=== PATIENT | female | born 1975 | race American Indian/Alaskan Native ===

== ENCOUNTER 2017-03-25 11:04 | Emergency (ER) | payer MEDICAID ==
[2017-03-25 11:27] VITALS: BMI 26.4
[2017-03-25 11:29] VITALS: BP 117/74; PULSE 83; RESP 20; TEMP 98.2
[2017-03-25 11:35] VITALS: O2SAT 98
--- NOTE | 2017-03-25 12:21 | ED PDOC ---
HPI: CCC, URI, Sore Throat Time Seen by Provider: 03/25/17 11:39 Chief Complaint (Nursing): Cough, Cold, Congestion Chief Complaint (Provider): cough History Per: Patient History/Exam Limitations: no limitations Onset/Duration Of Symptoms: Days (3), Gradual Current Symptoms Are (Timing): Still Present Location Of Pain: Throat. denies: Diffuse Myalgias, Headache Sick Contacts (Context): None Severity: Mild Additional Complaint(s): 41yo female hx HIV on HAART states VL neg, presents c/o cough and mild sore throat for last 3 days. Denies significant headache, fatigue or body aches. Taking OTC cough medicines with some relief. Did not get flu shot this year. Past Medical History Reviewed: Historical Data, Nursing Documentation, Vital Signs Vital Signs: Last Vital Signs Temp 98.2 F 03/25/17 11:28 Pulse 83 03/25/17 11:28 Resp 20 03/25/17 11:28 BP 117/74 03/25/17 11:28 Pulse Ox 98 03/25/17 11:32 - Medical History PMH: HIV - Family History Family History: States: Unknown Family Hx - Social History Current smoker - smoking cessation education provided: No - Home Medications Home Medications: Ambulatory Orders Medication Instructions Recorded Albuterol HFA [Ventolin HFA 90 1 - 2 puff IH Q4 PRN #1 inhaler 03/25/17 mcg/actuation (8 g)] Azithromycin [Zithromax] 250 mg PO DAILY #6 tab 03/25/17 Ibuprofen [Motrin Tab] 600 mg PO Q6 PRN #15 tab 03/25/17 - Allergies Allergies/Adverse Reactions: Allergies Allergy/AdvReac Type Severity Reaction Status Date / Time No Known Allergies Allergy Verified 03/25/17 11:32 Review of Systems Constitutional: Positive for: Malaise. Negative for: Fever, Chills Respiratory: Positive for: Cough. Negative for: Shortness of Breath, Hemoptysis , Pleuritic Pain, Sputum, Wheezing Gastrointestinal: Negative for: Nausea, Vomiting, Abdominal Pain Genitourinary Female: Negative for: Dysuria Musculoskeletal: Negative for: Neck Pain, Back Pain, Leg Pain Skin: Negative for: Rash, Lesions, Jaundice Neurological: Negative for: Weakness, Numbness, Headache Psych: Negative for: Anxiety Physical Exam - Reviewed Nursing Documentation Reviewed: Yes Vital Signs Reviewed: Yes - Physical Exam Appears: Positive for: Well, Non-toxic, No Acute Distress Head Exam: Positive for: ATRAUMATIC, NORMAL INSPECTION, NORMOCEPHALIC Skin: Positive for: Normal Color, Warm, DRY Eye Exam: Positive for: EOMI, Normal appearance, PERRL ENT: Positive for: Normal ENT Inspection, Pharyngeal Erythema, Other (neg thrush ). Negative for: Tonsillar Exudate, Tonsillar Swelling Neck: Positive for: Normal, Painless ROM, Supple Cardiovascular/Chest: Positive for: Regular Rate, Rhythm Respiratory: Positive for: Normal Breath Sounds. Negative for: Wheezing, Respiratory Distress Gastrointestinal/Abdominal: Positive for: Bowel Sounds, Soft. Negative for: Tenderness Back: Positive for: Normal Inspection Extremity: Positive for: Normal ROM Neurologic/Psych: Positive for: Alert, Oriented. Negative for: Motor/Sensory Deficits - ECG O2 Sat by Pulse Oximetry: 98 Pulse Ox Interpretation: Normal - Radiology X-Ray: Interpreted by Me X-Ray Interpretation: No Acute Disease Medical Decision Making Medical Decision Making: CXR neg but given hx HIV cover w Azithromycin, followup PMD, supportive care, Rx motrin/ albuterol HFA provided. No signs resp failure, systemic infection or hemodynamic instability to indicate further testing in ED. Disposition - Clinical Impression Clinical Impression: Bronchitis - Disposition Condition: STABLE Additional Instructions: Use medications as directed. Return to ER for any worse or new symptoms, difficulty breathing, fever >104, or any concern. Prescriptions: Albuterol HFA [Ventolin HFA 90 mcg/actuation (8 g)] 1 - 2 puff IH Q4 PRN #1 inhaler PRN Reason: Shortness Of Breath Azithromycin [Zithromax] 250 mg PO DAILY #6 tab Ibuprofen [Motrin Tab] 600 mg PO Q6 PRN #15 tab PRN Reason: Pain, Moderate (4-7) Instructions: Acute Bronchitis (ED) Forms: [employer] (Frisian)
--- NOTE | 2017-03-25 14:40 | RAD ---
HISTORY: cough COMPARISON: No prior. TECHNIQUE: Chest PA and lateral FINDINGS: LUNGS: No active pulmonary disease. PLEURA: No significant pleural effusion identified. No pneumothorax apparent. CARDIOVASCULAR: Normal. OSSEOUS STRUCTURES: No significant abnormalities. VISUALIZED UPPER ABDOMEN: Normal. OTHER FINDINGS: None. IMPRESSION: No acute cardiopulmonary disease appreciated.
== END 2017-03-25 12:25 | disposition home or self-care (01) ==
LOC: H.ER 11:04
DX: J40 Bronchitis, not specified as acute or chronic (principal)

== ENCOUNTER 2017-08-14 15:57 | Emergency (ER) | payer MEDICAID ==
[2017-08-14 15:57] VITALS: BMI 26.4
[2017-08-14 16:10] VITALS: O2SAT 100
--- NOTE | 2017-08-14 16:21 | ED PDOC ---
HPI: Chest Pain Time Seen by Provider: 08/14/17 16:13 Chief Complaint (Nursing): Chest Pain Chief Complaint (Provider): Chest Pain History Per: Patient History/Exam Limitations: no limitations Onset/Duration Of Symptoms: Days (three) Current Symptoms Are (Timing): Still Present Context: Other (s/p complete hysterectomy 7 days ago) Quality: Dull Modifying Factors: None Additional Complaint(s): Pt presents to the ED complaining of nondescipt chest pain on the left side that does not radiate and does not travel to the back. Pt indicates that chest pain has been in place for one week and is relieved from time to time with [place]. Pt has a complete hysterectomy one week prior to transprtatoin. Pt denies STERN SOB and any cardiac or vascular history - Risk Factors PE Risk Factors: Pos: Recent Major Surgery Past Medical History Reviewed: Historical Data, Nursing Documentation, Vital Signs Vital Signs: Last Vital Signs Temp 98.1 F 08/14/17 16:08 Pulse 86 08/14/17 16:08 Resp 18 08/14/17 16:08 BP 123/75 08/14/17 16:08 Pulse Ox 100 08/14/17 19:00 - Medical History PMH: HIV - Family History Family History: States: Unknown Family Hx - Immunization History Hx Tetanus Toxoid Vaccination: No Hx Influenza Vaccination: No Hx Pneumococcal Vaccination: No - Home Medications Home Medications: Ambulatory Orders Medication Instructions Recorded Albuterol HFA [Ventolin HFA 90 1 - 2 puff IH Q4 PRN #1 inhaler 03/25/17 mcg/actuation (8 g)] Azithromycin [Zithromax] 250 mg PO DAILY #6 tab 03/25/17 Ibuprofen [Motrin Tab] 600 mg PO Q6 PRN #15 tab 03/25/17 Acetaminophen [Tylenol] 2 cap PO TID #30 capsule 08/14/17 Ibuprofen [Motrin Tab] 1 tab PO QID #40 tab 08/14/17 - Allergies Allergies/Adverse Reactions: Allergies Allergy/AdvReac Type Severity Reaction Status Date / Time No Known Allergies Allergy Verified 08/14/17 16:07 BETI Risk Score for UA/NSTEMI - BETI Risk Score Age > 64: NO Known CAD (Stenosis greater than 50%): NO Aspirin use in past 7 days: NO Severe Angina: NO EKG ST changes greater than 0.5mm: NO Positive Cardiac Marker: NO BETI Score: 0 Risk %: 5% Wells Criteria for PE - Wells Criteria for Pulmonary Embolism P.E is #1 Diagnosis, or Equally Likely: No Heart Rate >100: No Immobilization at least 3 days;Surgery previous 4 weeks: Yes Previous, objectively diagnosed PE or DVT: No Hemoptysis: No Malignancy w/treatment within 6 months, or palliative: No Total Score: 1.5 Review of Systems ROS Statement: Except As Marked, All Systems Reviewed And Found Negative Cardiovascular: Positive for: Chest Pain Respiratory: Negative for: SOB with Exertion, Wheezing Physical Exam - Reviewed Nursing Documentation Reviewed: Yes Vital Signs Reviewed: Yes - Physical Exam Appears: Positive for: Well, No Acute Distress Head Exam: Positive for: ATRAUMATIC, NORMAL INSPECTION, NORMOCEPHALIC Skin: Positive for: Normal Color, Warm Neck: Positive for: Normal, Painless ROM, Supple. Negative for: Decreased ROM Cardiovascular/Chest: Positive for: Regular Rate, Rhythm. Negative for: Chest Non Tender, Edema, Gallop, Murmur, Bradycardia, Tachycardia, Friction Rub, Irregularly Irregular Respiratory: Positive for: Normal Breath Sounds. Negative for: Accessory Muscle Use, Crackles, Rales, Rhonchi, Stridor, Wheezing, Respiratory Distress Pulses-Carotid (L): 2+ Pulses-Carotid (R): 2+ Pulses-Radial (L): 2+ Pulses-Radial (R): 2+ Extremity: Negative for: Pedal Edema, Swelling - Laboratory Results Result Diagrams: 08/14/17 16:48 08/14/17 16:48 - ECG O2 Sat by Pulse Oximetry: 100 Medical Decision Making Medical Decision Making: R/O PE > Cardiac Cardiac markers, including BNP, are benign and not elevated EKG is normal and has no clinical significance DDimer executed due to sx and hx that includes surgery x1week >900 CTA Ordered = normal in all respects Disposition - Clinical Impression Clinical Impression: Chest discomfort - Patient ED Disposition Is Patient to be Admitted: No Doctor Will See Patient In The: Office Counseled Patient/Family Regarding: Studies Performed, Diagnosis, Need For Followup - Disposition Referrals: [facility] [Outside] Disposition: Routine/Home Disposition Time: 18:56 Condition: GOOD Prescriptions: Acetaminophen [Tylenol] 2 cap PO TID #30 capsule Ibuprofen [Motrin Tab] 1 tab PO QID #40 tab Instructions: Chest Pain That Is Not Caused by the Heart (DC) Forms: [employer] (Polish)
[2017-08-14 16:53] LABS: BASO % 0.8 % (0.0-2.0); EOS % 0.8 % (0.0-4.0); HEMOGLOBIN 12.8 g/dL (12.0-16.0); LYMPH # 1.5 K/uL (1.0-4.3); LYMPH % 34.2 % (20.0-40.0); MEAN CELL VOLUME 102.7 fl (81.0-99.0); MEAN CORPUSCULAR HEMOGLOBIN 34.4 pg (27.0-31.0); MEAN CORPUSCULAR HGB CONC 33.5 g/dL (33.0-37.0); MEAN PLATELET VOLUME 9.3 fl (7.2-11.7); MONO # 0.3 K/uL (0.0-0.8); MONO % 7.8 % (0.0-10.0); NEUT # 2.5 K/uL (1.8-7.0); NEUT % 56.4 % (50.0-75.0); NRBC % 0.1 % (0.0-0.0); RBC 3.74 Mil/uL (3.80-5.20); WHITE BLOOD COUNT 4.5 K/uL (4.8-10.8)
--- NOTE | 2017-08-14 16:53 | RAD ---
HISTORY: cp COMPARISON: Chest radiograph dated 03/25/2017. TECHNIQUE: Chest PA and lateral FINDINGS: LUNGS: No active pulmonary disease. PLEURA: No significant pleural effusion identified. No pneumothorax apparent. CARDIOVASCULAR: Normal. OSSEOUS STRUCTURES: No significant abnormalities. VISUALIZED UPPER ABDOMEN: Normal. OTHER FINDINGS: None. IMPRESSION: No active disease.
[2017-08-14 16:58] LABS: SQUAMOUS EPITHIAL 4 /hpf (0-5); URINE BILIRUBIN NEGATIVE (NEGATIVE); URINE BLOOD SMALL (NEGATIVE); URINE CLARITY SLIGHTY-CLOUDY (Clear); URINE COLOR YELLOW (YELLOW); URINE GLUCOSE (UA) NEG (Normal); URINE LEUKOCYTE ESTERASE NEG Leu/uL (Negative); URINE PROTEIN NEGATIVE (NEGATIVE); URINE UROBILINOGEN 0.2-1.0 mg/dL (0.2-1.0)
[2017-08-14 17:07] LABS: INR 1.1 (0.9-1.2); PARTIAL THROMBOPLASTIN TIME 29.8 Seconds (25.6-37.1); PROTHROMBIN TIME 12.6 Seconds (9.8-13.1)
[2017-08-14 17:20] LABS: ALB/GLOB RATIO 1.1 (1.0-2.1); ALBUMIN 4.1 g/dL (3.5-5.0); ALT/SGPT 31 U/L (9-52); AST/SGOT 21 U/L (14-36); B-TYPE NATRIURETIC PEPTIDE 47.6 pg/ml (0-450); BLOOD UREA NITROGEN 12 mg/dl (7-17); CALCIUM 9.3 mg/dL (8.4-10.2); GFR AFRICAN-AMERICAN > 60; GFR NON-AFRICAN AMERICAN > 60; LIPASE 94 U/L (23-300)
[2017-08-14] MEDS ORDERED: Iodixanol 320 MG/ML 100 ML BOTTLE IV ONE (17:25)
[2017-08-14] MEDS ORDERED: Sodium Chloride 0.9% 1,000 ML IV SCH (17:30)
--- NOTE | 2017-08-14 18:11 | CT ---
PROCEDURE: CT Chest with contrast (Pulmonary Angiogram) HISTORY: r/o PE COMPARISON: None available. TECHNIQUE: Axial computed tomography images were obtained of the chest in the pulmonary arterial phase of enhancement. Coronal and sagittal reformatted images were created and reviewed. Intravenous contrast dose: 96 mL Visipaque 320 Radiation dose: Total exam DLP = 198 mGy-cm. This CT exam was performed using one or more of the following dose reduction techniques: Automated exposure control, adjustment of the mA and/or kV according to patient size, and/or use of iterative reconstruction technique. FINDINGS: PULMONARY ARTERIES: Unremarkable. No pulmonary embolism. AORTA: No acute findings. No thoracic aortic aneurysm. LUNGS: Unremarkable. No nodule, mass or pulmonary consolidation. PLEURAL SPACES: Unremarkable. No effusion or pneuomothorax. HEART: Unremarkable. No cardiomegaly. No significant pericardial effusion. LYMPH NODES: No lymphadenopathy. BONES, CHEST WALL: Unremarkable. No fracture or destructive lesion OTHER FINDINGS: Unremarkable. IMPRESSION: Unremarkable CT pulmonary angiogram. No pulmonary embolus.
[2017-08-14 19:12] VITALS: BP 114/68; PULSE 74; RESP 16; TEMP 98
--- NOTE | 2017-08-14 21:26 | CARD ---
APPROVED REPORT EKG Measurement Heart [id number] <Conclusion> Normal sinus rhythm Normal ECG
== END 2017-08-14 19:12 | disposition home or self-care (01) ==
LOC: H.ER 15:57
DX: R07.89 Other chest pain (principal)
CPT/HCPCS: 71046; 71275; 80053; 81003; 81025; 82948; 83690; 83880; 84484; 85025; 85378; 85610; 85730; 93005; 99284; J7040; Q9967